=== PATIENT | female | born 1965 | race Caucasian/White ===

== ENCOUNTER 2020-03-21 09:33 | Inpatient (IN) | payer OTHER, SELFPAY ==
[2020-03-21] VITALS (17 sets, daily range): BP systolic 114–134; BP diastolic 53–90; PULSE 72–91; RESP 16–24; TEMP 37.2–38; O2SAT 86–98; BMI 45.3
--- NOTE | ~2020-03-21 | XR_ITS ---
EXAMINATION: XR chest 1V portable INDICATION: Cough, COVID 19 positive, fever TECHNIQUE: Portable AP chest at 1056 hours COMPARISON: None available FINDINGS: There are airspace opacities of the mid and lower lung zones. No pleural effusion or pneumo thorax is identified. The cardiomediastinal silhouette is normal. IMPRESSION: 1. Airspace opacities of the mid and lower lung zones in a distribution compatible with COVID 19 pneu monia. Reviewed, dictated and finalized at location A. IMPRESSION: 1. Airspace opacities of the mid and lower lung zones in a distribution compati ble with COVID 19 pneumonia.
--- NOTE | 2020-03-21 10:30 | PC.NURSE ---
Pt unable to give urine sample at this time. Need for urine specimen explained.
--- NOTE | 2020-03-21 10:36 | ED.GENADULT ---
HPI - General Adult General Chief complaint: Nausea/Vomiting/Diarrhea Stated complaint: covid positive/fever/cough/nausea Time Seen by Provider: 03/21/20 10:08 Source: patient Mode of arrival: ambulatory Limitations: no limitations History of Present Illness HPI narrative: Patient is a 54-year-old female who a few days ago tested positive for aaron virus her significant other is also positive coronavirus patient notes rhinorrhea congestion sinus headache also noting some loose stools denying rectal bleeding or melena has nausea but no emesis noting fatigue. Patient also notes some urinary frequency and urgency. Patient with history of ulcerative colitis Related Data Allergies Allergy/AdvReac Type Severity Reaction Status Date / Time sulfamethoxazole Allergy Mild Hives Unverified 03/21/20 10:53 trimethoprim Allergy Mild Unknown Unverified 03/21/20 10:53 Review of Systems Review of Systems: All systems reviewed & are unremarkable except as noted in HPI and below PMFSH Past Medical History Medical History Asthma Obesity Ulcerative colitis Surgical History Surgical History H/O colonoscopy Social History Social History Smoking status: Never smoker Exam Narrative: Exam Narrative: GENERAL: Ill-appearing, obese , and in no acute distress. HEAD: Normocephalic, atraumatic. EYES: PERRLA and EOMI. ENT: Nares clear, no rhinorrhea or epistaxis. Mucous membranes moist. Oropharynx without tonsillar hypertrophy exudate or other lesions. CHEST: Diminished on auscultation. No respiratory distress. No wheezes rales or rhonchi HEART: Regular rate and rhythm. No murmur heard. Normal peripheral pulses. ABDOMEN: Soft, nontender, nondistended EXTREMITIES: Normal range of motion. No edema. SKIN: Warm, dry, no rash. NEURO: No focal deficits. Alert and oriented x3. Cranial nerves II through XII grossly intact PSYCH: Normal mood and affect. Course Course Emergency Course: Patient in the room at this time resting comfortably has been dipping down and becoming hypoxic sitting in the room patient has urinary tract infection and pneumonia will be brought into hospital for further evaluation. Patient agrees with this plan and noted improvement with medication Consultations Consultation #1: Discussed case with hospitalist who has agreed to accept the patient Date: 03/21/20 Time: 12:29 Vital Signs Vital signs: Vital Signs Temperature 100 F H 03/21/20 09:43 Pulse Rate 88 03/21/20 09:43 Respiratory Rate 17 03/21/20 09:43 Blood Pressure 127/82 03/21/20 09:43 Pulse Oximetry 95 03/21/20 09:43 Temperature 100 F H 03/21/20 09:43 Pulse Rate 90 03/21/20 11:15 Respiratory Rate 30 H 03/21/20 11:15 Blood Pressure 134/90 03/21/20 11:15 Pulse Oximetry 91 03/21/20 11:15 Medical Decision Making MDM Narrative Medical decision making narrative: Patient in the room at this time with improvement of nausea with urinary tract infection COVID pneumonia patient's oxygenation is hanging around 94- 92 while lying in bed. Patient also with ulcerative colitis on immunosuppression. Patient will be kept in hospital. Patient agrees with this plan Vital Signs Vital Signs: Vital Signs Temperature 100 F H 03/21/20 09:43 Pulse Rate 88 03/21/20 09:43 Respiratory Rate 17 03/21/20 09:43 Blood Pressure 127/82 03/21/20 09:43 Pulse Oximetry 95 03/21/20 09:43 Temperature 100 F H 03/21/20 09:43 Pulse Rate 90 03/21/20 11:15 Respiratory Rate 30 H 03/21/20 11:15 Blood Pressure 134/90 03/21/20 11:15 Pulse Oximetry 91 03/21/20 11:15 Lab Data Result diagrams: 03/21/20 10:46 03/21/20 10:46 Labs: Lab Results 03/21/20 03/21/20 03/21/20 Range/Units 10:46 10:46 10:46 WBC 7.9 (4.5-10.0) K/mm3 RBC
[2020-03-21] MEDS: FAMOTIDINE 20 MG/2 ML VIAL IV PUSH ×2 (10:53→20:32)
[2020-03-21 10:54] LABS: Basophils Percent Auto 0.5 % (0.2-1.2); Eosinophils Percent Auto 0.1 % (0-4.4); Hematocrit 44.8 % (37.0-47.0); Hemoglobin 14.8 g/dL (12.0-15.0); Immature Granulocyte Percent A 1.3 % (0-0.5); Lymphocytes Absolute Auto 0.98 K/mm3 (0.9-3.2); Lymphocytes Percent Auto 12.4 % (18.3-44.2); Mean Corpuscular Hemoglobin 28.8 pg (26-34); Mean Corpuscular Volume 87.2 fl (80-100); Mean Platelet Volume 10.4 fl (7.4-10.4); Monocytes Absolute Auto 0.6 K/mm3 (0.1-0.6); Monocytes Percent Auto 7.9 % (2.6-8.5); Neutrophils Absolute Auto 6.2 K/mm3 (1.3-6.7); Neutrophils Percent Auto 77.8 % (45.5-73.1); Platelet Count Result 210 k/mm3 (150-375); Red Blood Count 5.14 M/mm3 (4.2-5.4); Red Cell Distribution Width 14.1 % (11.5-14.5); White Blood Count 7.9 K/mm3 (4.5-10.0)
[2020-03-21] MEDS: METOCLOPRAMIDE HCL INJ 10 MG/2 ML VIAL IV PUSH (10:54)
--- NOTE | 2020-03-21 11:00 | PC.NURSE ---
This RN requested urine specimen, pt states she was taken to restroom but not given specimen cup. Pt will press call light as soon as she is able to give urine specimen.
[2020-03-21 11:07] LABS: Alanine Aminotransferase 13 U/L (4-35); Albumin Level 3.9 g/dL (3.5-5.1); Alkaline Phosphatase 78 U/L (38-126); Anion Gap 8 mmol/L (8-16); Aspartate Amino Transferase 35 U/L (14-36); Bilirubin,Total 0.3 mg/dL (0.2-1.3); Blood Urea Nitrogen 14 mg/dL (7-17); CRP 7.2 mg/dL (<1.0); Calcium 8.2 mg/dL (8.4-10.2); Carbon Dioxide 23 mmol/L (22-30); Chloride 107 mmol/L (98-107); Estimated CRCL calculation 91 ml/min; Estimated Glomerular Filt Rate > 60; Glucose 103 mg/dL (65-105); Lipase 56 U/L (23-300); Potassium 3.7 mmol/L (3.4-5.0); Prothrombin Time 13.2 Seconds (11.1-14.7); Sodium 138 mmol/L (137-145)
[2020-03-21 11:08] LABS: Partial Thromboplastin Time 32.1 SECONDS (22.3-36.8)
[2020-03-21] MEDS: LACTATED RINGERS 1,000 ML 999 ML IV CONT (11:14)
--- NOTE | 2020-03-21 11:47 | PC.NURSE ---
Pt ambulating to the bathroom at this time
--- NOTE | 2020-03-21 11:54 | PC.NURSE ---
Patient reports decreased nausea after medications. Patient ambulatory to restroom and back to ER stretcher. Resting with call light in reach and ice chips provided.
[2020-03-21 12:01] LABS: Add Urine Microscopic? YES; Appearance Urine Clear (Clear); Bacteria Urine Trace /hpf; Bilirubin Urine Negative (Negative); Blood Urine Negative (Negative); Color Urine Yellow (Yellow); Glucose Urine UA 1+ mg/dL (Negative); Ketones Urine Trace mg/dL (Negative); Leukocyte Esterase Ur 3+ LEU/UL (Negative); Mucus Urine Rare /lpf; Nitrate Urine Negative (Negative); Protein Urine 1+ mg/dL (Negative); Specific Grav Ur 1.026 (1.001-1.035); Squamous Epithelial Cell Urine Moderate /hpf (Few); Urobilinogen Urine Negative mg/dL (<2.0); WBC Urine 31-50 /hpf
--- NOTE | 2020-03-21 13:49 | PC.NURSE ---
This patient, Mikaela Newton, was admitted to [facility] Surg Room 330-01. Patient/family oriented to hospital policies and general routines including ID bracelet, bed and alarms, visiting hours, pain management, procedures, bathroom and other care routines, personal items, smoking policy, room service/diet, and visiting hours. Valuables list has been completed. Information on how to activate the Rapid Response Team has been discussed. Patient/Family are encouraged to report perceived risks to care and to ask questions if they do not understand what they are told or what they should do.
[2020-03-21] MEDS: LACTATED RINGERS 1,000 ML 125 ML IV CONT ×2 (14:24→20:31)
[2020-03-21] MEDS: ONDANSETRON INJ 4 MG/2 ML VIAL IV PUSH (18:35)
--- NOTE | 2020-03-21 20:45 | PM.IMHP ---
H&P: HPI History of Present Illness Date/Time: 03/21/20 20:45 Chief complaint: Nausea and poor oral intake. Narrative: Mikaela Newton is a Very pleasant 54-year-old female with ulcerative colitis, GERD, depression, and anxiety who presented to the emergency department earlier this morning via private vehicle from home for evaluation of nausea and poor oral intake. Approximately 8 days ago (February) she began feeling poorly to include sinus congestion, body aches, nausea, diarrhea, and fever. Her had tested positive for COVID-19, and she was tested the following day also with a positive result. She is still able to smell and taste, but her appetite has not been great due to severe nausea and things are just not tasting the same. She has been alternating ibuprofen and Tylenol but continues to spike fevers with a T-max of 101.4?. In the emergency department she was given IV fluid rehydration and antiemetics, with perhaps slight improvement. She is being admitted due to reports of hypoxia in the emergency department, however her SpO2 has been in the high 90s on room air since arrival to the floor. Her main complaint at the time my evaluation is of body aches and a diffuse frontal headache. She denies neck ache, chest pain, pleuritic pain, severe shortness of breath, orthopnea, PND, lower extremity edema, and .vomiting Review of Systems Review of Systems: Narrative: 12 systems were reviewed with pertinent positives and negatives as per HPI. No neck ache. She denies sore throat and rash. She has had 4 to 5 loose stools per day. No recent travel or antibiotic use. No blood or mucus in the stool. She denies dysuria. Except as documented, all other systems were reviewed and are negative. [facility] Past Medical History Medical History (Updated 03/21/20 @ 21:48 by Dominique Gonzalez PA-C) Asthma Depression with anxiety Gastroesophageal reflux disease Overactive bladder Skin cancer History of squamous cell and basal cell carcinoma. Ulcerative colitis Surgical History Surgical History (Updated 03/21/20 @ 21:43 by Dominique Gonzalez PA-C) History of appendectomy History of bladder suspension procedure History of cholecystectomy History of colonoscopy History of hysterectomy Related to endometriosis. History of lumpectomy of left breast With benign pathology. History of sinus surgery Family History Family History Mother Breast cancer Father Parkinsons Lymphoma Father No problems noted. Social History Social History (Updated 03/21/20 @ 21:44 by Dominique Gonzalez PA-C) Social History: The patient lives in [place] with her . 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 She is a lifelong nonsmoker and denies alcohol and illicit substance use. She designates her , Michele, as her surrogate decision maker and she wishes to be a full code. Gender identity (if verbalized by the patient): Female Spiritual care concerns: No Meds Home Medications and Allergies Home Medications Medication Instructions Recorded Confirmed Type Lacto.acidophilus-Bif.animalis 1 cap PO DAILY 03/21/20 03/21/20 History [Daily Probiotic] bupropion HCl [Wellbutrin XL] 450 mg PO QAM 03/21/20 03/21/20 History cetirizine-pseudoephedrine 1 tablet PO DAILY 03/21/20 03/21/20 History [Zyrtec-D] lansoprazole [Prevacid] 15 mg PO DAILY 03/21/20 03/21/20 History mirabegron [Myrbetriq] 25 mg PO HS 03/21/20 03/21/20 History propranolol 10 mg PO Q12H 03/21/20 03/21/20 History spironolactone 50 mg PO BID 03/21/20 03/21/20 History Allergies Allergy/AdvReac Type Severity Reaction Status Date / Time sulfamethoxazole Allergy Mild Hives Verified 03/21/20 12:58 trimethoprim Allergy Mild Unknown Verified 03/21/20 12:58 Vital Signs Vital Signs - 24 hr 03/21/20 09:43 03/21/20 10:01 03/21/20 10:53 Temperature 100 F H Pulse Rate 88 86 91 Respiratory
[2020-03-21] MEDS: IBUPROFEN 600 MG TABLET PO (22:15)
[2020-03-21] MEDS: MIRABEGRON 25 MG ER TABLET PO (22:24)
[2020-03-21] MEDS: PROPRANOLOL HCL 10 MG TABLET PO (22:24)
[2020-03-21] MEDS: MELATONIN 5 MG TABLET PO (22:24)
[2020-03-22] VITALS (14 sets, daily range): BP systolic 108–136; BP diastolic 54–66; PULSE 66–74; RESP 18–20; TEMP 36.6–36.9; O2SAT 92–98
[2020-03-22] MEDS: REMDESIVIR 200 MG/NS 250 ML 200 MG/250 ML BAG 250 MG IVPB (00:39)
[2020-03-22 05:56] LABS: Hematocrit 41.7 % (37.0-47.0); Hemoglobin 13.6 g/dL (12.0-15.0); Mean Corpuscular HGB Conc 32.6 g/dl (32-36); Mean Corpuscular Hemoglobin 28.6 pg (26-34); Mean Corpuscular Volume 87.6 fl (80-100); Mean Platelet Volume 9.7 fl (7.4-10.4); Platelet Count Result 178 k/mm3 (150-375); Red Blood Count 4.76 M/mm3 (4.2-5.4); Red Cell Distribution Width 13.5 % (11.5-14.5); White Blood Count 7.5 K/mm3 (4.5-10.0)
[2020-03-22] MEDS: IBUPROFEN 600 MG TABLET PO ×3 (06:15→21:00)
[2020-03-22 06:16] LABS: Anion Gap 6 mmol/L (8-16); Blood Urea Nitrogen 9 mg/dL (7-17); CRP 7.8 mg/dL (<1.0); Calcium 8.1 mg/dL (8.4-10.2); Carbon Dioxide 29 mmol/L (22-30); Chloride 103 mmol/L (98-107); Estimated CRCL calculation 93 ml/min; Estimated Glomerular Filt Rate > 60; Glucose 97 mg/dL (65-105); Lactate Dehydrogenase 427 U/L (313-618); Magnesium 2.1 mg/dL (1.6-2.3); Potassium 3.3 mmol/L (3.4-5.0); Sodium 138 mmol/L (137-145)
[2020-03-22 06:18] LABS: Alanine Aminotransferase 11 U/L (4-35)
[2020-03-22] MEDS: PROPRANOLOL HCL 10 MG TABLET PO ×2 (08:26→20:59)
[2020-03-22] MEDS: buPROPion HCL XL (24 HR) 150 MG TABCR 450 MG PO (08:27)
[2020-03-22] MEDS: PANTOPRAZOLE 40 MG TABLET PO (08:27)
[2020-03-22] MEDS: ACIDOPHILUS/BULGARICUS CHEWABLE TABLET 1 TABLET PO (08:27)
[2020-03-22] MEDS: CHOLECALCIFEROL 400 UNITS TABLET (VIT D) PO (08:27)
[2020-03-22] MEDS: ZINC SULFATE 220 MG CAPSULE PO (08:27)
[2020-03-22] MEDS: ENOXAPARIN 40 MG/0.4 ML SYRINGE SUB-Q (08:27)
[2020-03-22] MEDS: ASCORBIC ACID 500 MG TABLET PO (08:27)
[2020-03-22] MEDS: DEXAMETHASONE 2 MG TABLET 6 MG PO (08:27)
[2020-03-22] MEDS: POTASSIUM CHLORIDE 20 MEQ TABLET 40 MEQ PO (09:36)
[2020-03-22] MEDS: LOPERAMIDE HCL 2 MG CAPSULE PO (09:36)
[2020-03-22] MEDS: ONDANSETRON INJ 4 MG/2 ML VIAL IV PUSH (09:36)
--- NOTE | 2020-03-22 14:39 | PM.IMPN ---
Progress Note: A&P Assessment and Plan (1) Pneumonia due to COVID-19 virus: Code(s): U07.1 - COVID-19; J12.89 - Other viral pneumonia Status: Acute Assessment and Plan: -----wean down to 1 L but still feeling short of breath at times. Will switch albuterol from p.r.n. to scheduled. She is not taking big breath so I instructed her to do so. We will continue with Remdesivir and at the max his own at this time. Will repeat inflammatory labs tomorrow morning. (2) Depression with anxiety: Code(s): F41.8 - Other specified anxiety disorders Status: Acute Assessment and Plan: -----in good spirits today.Continue bupropion and propranolol. (3) Abnormal urinalysis: Code(s): R82.90 - Unspecified abnormal findings in urine Status: Acute Assessment and Plan: -----Her specimen looks contaminated since that has moderate squamous cells and no current symptoms. No plan to treat (4) Gastroesophageal reflux disease: Code(s): K21.9 - Gastro-esophageal reflux disease without esophagitis Status: Acute Assessment and Plan: -----Continue PPI. (5) Ulcerative colitis: Code(s): K51.90 - Ulcerative colitis, unspecified, without complications Status: Acute Assessment and Plan: ------she had a little diarrhea today which improved with Imodium. Hold Lialda during acute illness. Time Spent With Patient Time with patient: 25 - 35 minutes Subjective Date/time seen: 03/22/20 14:39 Interval history: Pt is a 54-year-old female here for COVID pneumonia. Patient states that she is feeling short of breath when she talks a lot but at rest she does okay. She walked to the bathroom without shortness of breath with her oxygen today. She has had a lot of diarrhea today which is not normal for her. She still has a decreased appetite but she is eating but she can. She has O2 risk who at this time Review of Systems Review of Systems: All systems reviewed & are unremarkable except as noted in HPI and below Exam Narrative: Exam Narrative: General: Well developed well nourished patient in NAD HEENT: normocephalic Neck: supple Neuro: Alert and oriented x4 CV:RRR Resp:CTA on 1 L of oxygen Abd: Soft, non distended. No pain to palpation. Positive bowel sounds Extremities: No swelling, erythema, or pain to palpation. Objective Data Vital Signs Vital Signs: Vital Signs - 24 hr 03/21/20 16:00 03/21/20 19:30 03/21/20 20:00 Temperature 99.5 F 99.0 F Pulse Rate 81 79 Respiratory Rate 16 20 Blood Pressure 125/58 L 116/56 L Pulse Oximetry 98 96 96 03/21/20 22:24 03/21/20 22:40 03/21/20 23:00 Temperature Pulse Rate 78 72 Respiratory Rate Blood Pressure Pulse Oximetry 87 L 93 03/21/20 23:28 03/21/20 23:35 03/22/20 00:00 Temperature 98.4 F Pulse Rate 76 72 Respiratory Rate 20 18 Blood Pressure 108/55 L Pulse Oximetry 86 L 96 94 03/22/20 01:50 03/22/20 04:00 03/22/20 06:16 Temperature 97.9 F 98.5 F Pulse Rate 74 66 Respiratory Rate 18 Blood Pressure 116/66 Pulse Oximetry 97 97 98 03/22/20 08:00 03/22/20 08:26 03/22/20 10:25 Temperature Pulse Rate 66 Respiratory Rate Blood Pressure Pulse Oximetry 97 97 03/22/20 11:10 03/22/20 14:00 Temperature 98.5 F Pulse Rate 66 Respiratory Rate 20 Blood Pressure 129/54 L Pulse Oximetry 94 94 Intake/Output Intake/Output: Intake & Output 03/19/20 03/20/20 03/21/20 03/22/20 23:59 23:59 23:59 23:59 Intake Total 2200 790 Output Total 1400 Balance 2200 -610 Meds/Results Medications: Active Medications Generic Name Dose Route Start Last Admin Trade Name Freq PRN Reason Stop Dose Admin Acetaminophen 650 mg 03/21/20 21:33 Tylenol Tablet PO Q6H PRN Mild Pain (1-3) or Fever Albuterol 2 puff 03/21/20 21:54 Proventil Hfa INHALATION QIDRT PRN Shortness Of Breath Ascorbic
[2020-03-22] MEDS: MIRABEGRON 25 MG ER TABLET PO (20:59)
[2020-03-22] MEDS: MELATONIN 5 MG TABLET PO (20:59)
[2020-03-22] MEDS: REMDESIVIR 100 MG/NS 250 ML 100 MG/250 ML BAG 250 MG IVPB (21:01)
[2020-03-22] MEDS: ALBUTEROL SULFATE (*SP) AEROSOL 1 PUFF 6 PUFF INHALATION (22:55)
[2020-03-23] VITALS (16 sets, daily range): BP systolic 103–127; BP diastolic 60–71; PULSE 53–80; RESP 18–24; TEMP 36.1–36.7; O2SAT 91–94
[2020-03-23 06:26] LABS: Hematocrit 41.8 % (37.0-47.0); Hemoglobin 13.9 g/dL (12.0-15.0); Mean Corpuscular HGB Conc 33.3 g/dl (32-36); Mean Corpuscular Hemoglobin 28.5 pg (26-34); Mean Corpuscular Volume 85.8 fl (80-100); Mean Platelet Volume 9.7 fl (7.4-10.4); Platelet Count Result 212 k/mm3 (150-375); Red Blood Count 4.87 M/mm3 (4.2-5.4); Red Cell Distribution Width 13.3 % (11.5-14.5); White Blood Count 7.6 K/mm3 (4.5-10.0)
[2020-03-23 06:41] LABS: D Dimer 0.41 ug/mL (<0.48)
[2020-03-23 07:09] LABS: Potassium 4.1 mmol/L (3.4-5.0)
[2020-03-23 07:17] LABS: Alanine Aminotransferase 12 U/L (4-35); Albumin Level 3.6 g/dL (3.5-5.1); Alkaline Phosphatase 63 U/L (38-126); Anion Gap 8 mmol/L (8-16); Aspartate Amino Transferase 31 U/L (14-36); Bilirubin,Total 0.4 mg/dL (0.2-1.3); Blood Urea Nitrogen 14 mg/dL (7-17); CRP 7.1 mg/dL (<1.0); Calcium 8.6 mg/dL (8.4-10.2); Carbon Dioxide 23 mmol/L (22-30); Chloride 107 mmol/L (98-107); Estimated CRCL calculation 106 ml/min; Estimated Glomerular Filt Rate > 60; Glucose 134 mg/dL (65-105); Lactate Dehydrogenase 451 U/L (313-618); Magnesium 2.2 mg/dL (1.6-2.3); Sodium 138 mmol/L (137-145)
[2020-03-23] MEDS: buPROPion HCL XL (24 HR) 150 MG TABCR 450 MG PO (08:22)
[2020-03-23] MEDS: ACIDOPHILUS/BULGARICUS CHEWABLE TABLET 1 TABLET PO (08:22)
[2020-03-23] MEDS: DEXAMETHASONE 2 MG TABLET 6 MG PO (08:22)
[2020-03-23] MEDS: ASCORBIC ACID 500 MG TABLET PO (08:22)
[2020-03-23] MEDS: CHOLECALCIFEROL 400 UNITS TABLET (VIT D) PO (08:22)
[2020-03-23] MEDS: ENOXAPARIN 40 MG/0.4 ML SYRINGE SUB-Q (08:22)
[2020-03-23] MEDS: PANTOPRAZOLE 40 MG TABLET PO (08:23)
[2020-03-23] MEDS: PROPRANOLOL HCL 10 MG TABLET PO ×2 (08:23→21:40)
[2020-03-23] MEDS: ZINC SULFATE 220 MG CAPSULE PO (08:23)
[2020-03-23] MEDS: ALBUTEROL SULFATE (*SP) AEROSOL 1 PUFF 6 PUFF INHALATION (09:21)
--- NOTE | 2020-03-23 09:27 | PC.NURSE ---
Spoke with CORTES Cesar. Pt had complained about reciving HHN tx at 11pm on 03/22/20. Said she was jittery all night and couldnt sleep. Tali gave new orders to change HHN tx to PRN Q6 H. Also asked Tali if it was ok for pt to get up and take shower. She said it was ok as long as pt was not SOB may need shower chair
--- NOTE | 2020-03-23 11:52 | PC.NURSE ---
Pt was able to shower independently using a shower chair. She remained on 1L O2.Pt tolerated well. She said she did tier easily.
--- NOTE | 2020-03-23 12:37 | PHAR ---
HOME MEDICATION VERIFIED BY PHARMACY: ALBERT PATCH 0.075 MG (ESTRADIOL TRANSDERMAL) APPLY 1 PATCH TOPICALLY TWICE WEEKLY
--- NOTE | 2020-03-23 13:07 | PM.IMPN ---
Progress Note: A&P Assessment and Plan (1) Pneumonia due to COVID-19 virus: Code(s): U07.1 - COVID-19; J12.89 - Other viral pneumonia Status: Acute Assessment and Plan: -----wean down to 1 L but still feeling short of breath at times. she does not do well with albuterol so we will discontinue this. She is trying to take deep breaths to help open up her airway. We will continue with Remdesivir and Decadron at this time. (2) Depression with anxiety: Code(s): F41.8 - Other specified anxiety disorders Status: Acute Assessment and Plan: -----in good spirits today.Continue bupropion and propranolol. (3) Abnormal urinalysis: Code(s): R82.90 - Unspecified abnormal findings in urine Status: Acute Assessment and Plan: -----Her specimen looks contaminated since that has moderate squamous cells and no current symptoms. It is only growing [id number] Proteus. No plan to treat (4) Gastroesophageal reflux disease: Code(s): K21.9 - Gastro-esophageal reflux disease without esophagitis Status: Acute Assessment and Plan: -----Continue PPI. (5) Ulcerative colitis: Code(s): K51.90 - Ulcerative colitis, unspecified, without complications Status: Acute Assessment and Plan: ------she had a little diarrhea today which improved with Imodium. Hold Lialda during acute illness. Subjective Date/time seen: 03/23/20 13:07 Interval history: Pt is a 54-year-old female here for COVID pneumonia. Patient was seen today and is feeling little nauseous right now but other than that feeling okay. She was up and able to take a shower and did not feel short of breath. She wear her oxygen the whole time. She is eating and drinking much better. Her diarrhea has resolved. She still has no dysuria or hematuria. Exam Narrative: Exam Narrative: General: Well developed well nourished patient in NAD HEENT: normocephalic Neck: supple Neuro: Alert and oriented x4 CV:RRR Resp:CTA on 1 L of oxygen Abd: Soft, non distended. No pain to palpation. Positive bowel sounds Extremities: No swelling, erythema, or pain to palpation. Objective Data Vital Signs Vital Signs: Vital Signs - 24 hr 03/22/20 14:00 03/22/20 16:00 03/22/20 20:11 Temperature 98.5 F 98.1 F Pulse Rate 66 68 70 Respiratory Rate 20 20 18 Blood Pressure 129/54 L 113/60 Pulse Oximetry 94 95 92 03/22/20 20:53 03/22/20 20:59 03/22/20 22:53 Temperature 97.8 F Pulse Rate 66 66 67 Respiratory Rate 20 20 Blood Pressure 136/65 Pulse Oximetry 94 93 03/23/20 00:00 03/23/20 00:39 03/23/20 04:00 Temperature 98.0 F Pulse Rate 60 61 53 L Respiratory Rate 22 H 18 18 Blood Pressure 122/71 Pulse Oximetry 92 93 91 03/23/20 05:00 03/23/20 08:00 03/23/20 08:23 Temperature 98.0 F 96.9 F L Pulse Rate 57 L 56 L 80 Respiratory Rate 20 24 H Blood Pressure 110/60 103/60 Pulse Oximetry 94 94 03/23/20 09:12 03/23/20 09:27 03/23/20 12:19 Temperature 96.9 F L Pulse Rate 56 L 78 Respiratory Rate 24 H 20 Blood Pressure 103/60 Pulse Oximetry 94 92 91 Intake/Output Intake/Output: Intake & Output 03/20/20 03/21/20 03/22/20 03/23/20 23:59 23:59 23:59 23:59 Intake Total 2200 1990 690 Output Total 2100 650 Balance 2200 -110 40 Meds/Results Medications: Active Medications Generic Name Dose Route Start Last Admin Trade Name Freq PRN Reason Stop Dose Admin Acetaminophen 650 mg 03/21/20 21:33 Tylenol Tablet PO Q6H PRN Mild Pain (1-3) or Fever Albuterol 2 puff 03/21/20 21:54 Proventil Hfa INHALATION QIDRT PRN Shortness Of Breath Albuterol 6 puff 03/23/20 09:33 Proventil Hfa INHALATION Q6HRT PRN Dyspnea Ascorbic Acid 500 mg 03/22/20 09:00 03/23/20 08:22 Vitamin C PO 500 mg DAILY LULU Administration Bupropion HCl 450 mg 03/22/20 09:00 03/23/20 08:22 Wellbutrin Xl (24
[2020-03-23] MEDS: ONDANSETRON INJ 4 MG/2 ML VIAL IV PUSH (13:08)
--- NOTE | 2020-03-23 14:50 | PC.NURSE ---
Tali KOLB is aware urine culture result is back. Protrus Miriabilis
--- NOTE | 2020-03-23 15:24 | PC.NURSE ---
PT stated she was having some nausea. I gave 4mg of prn Zofran IVP. Reevaluation was done 30min after administration. Pt stated nausea was gone.
--- NOTE | 2020-03-23 16:56 | PCRCNOTE ---
HOME O2 EVALUATION DONE. PT DOES NOT QUALIFY FOR HOME O2
--- NOTE | 2020-03-23 18:11 | PC.NURSE ---
recived orders from Tali KOLB, to wean o2 while mainting o2 at 92%. Also , pt is coughing, order for chloé HUFF.
[2020-03-23] MEDS: MELATONIN 5 MG TABLET PO (21:40)
[2020-03-23] MEDS: MIRABEGRON 25 MG ER TABLET PO (21:40)
[2020-03-23] MEDS: REMDESIVIR 100 MG/NS 250 ML 100 MG/250 ML BAG 250 MG IVPB (21:40)
[2020-03-23] MEDS: BENZONATATE 100 MG CAPSULE PO (21:41)
[2020-03-23] MEDS: IBUPROFEN 600 MG TABLET PO (22:02)
[2020-03-24] VITALS (10 sets, daily range): BP systolic 100–123; BP diastolic 48–75; PULSE 54–70; RESP 18–20; TEMP 36.2–36.9; O2SAT 88–94
[2020-03-24 07:08] LABS: Alanine Aminotransferase 11 U/L (4-35); Anion Gap 7 mmol/L (8-16); Blood Urea Nitrogen 17 mg/dL (7-17); CRP 3.1 mg/dL (<1.0); Calcium 8.5 mg/dL (8.4-10.2); Carbon Dioxide 26 mmol/L (22-30); Chloride 106 mmol/L (98-107); Estimated CRCL calculation 93 ml/min; Estimated Glomerular Filt Rate > 60; Glucose 123 mg/dL (65-105); Potassium 3.9 mmol/L (3.4-5.0); Sodium 139 mmol/L (137-145)
--- NOTE | 2020-03-24 08:28 | PC.NURSE ---
Tali KOLB, requested nasal cannula be removed to see how pt does on room air. She was taken of the 0.5L nasal cannula. She will stay on continuous monitoring for pulse oximetry at this time.
[2020-03-24] MEDS: ENOXAPARIN 40 MG/0.4 ML SYRINGE SUB-Q (09:54)
[2020-03-24] MEDS: ZINC SULFATE 220 MG CAPSULE PO (09:54)
[2020-03-24] MEDS: buPROPion HCL XL (24 HR) 150 MG TABCR 450 MG PO (09:54)
[2020-03-24] MEDS: CHOLECALCIFEROL 400 UNITS TABLET (VIT D) PO (09:55)
[2020-03-24] MEDS: ACIDOPHILUS/BULGARICUS CHEWABLE TABLET 1 TABLET PO (09:55)
[2020-03-24] MEDS: BENZONATATE 100 MG CAPSULE PO ×3 (09:55→17:44)
[2020-03-24] MEDS: ASCORBIC ACID 500 MG TABLET PO (09:55)
[2020-03-24] MEDS: PROPRANOLOL HCL 10 MG TABLET PO (09:55)
[2020-03-24] MEDS: PANTOPRAZOLE 40 MG TABLET PO (09:55)
[2020-03-24] MEDS: DEXAMETHASONE 2 MG TABLET 6 MG PO (09:55)
--- NOTE | 2020-03-24 11:11 | PM.IMPN ---
Progress Note: A&P Assessment and Plan (1) Pneumonia due to COVID-19 virus: Code(s): U07.1 - COVID-19; J12.89 - Other viral pneumonia Status: Acute Assessment and Plan: -----patient intermittently requires oxygen and is usually around 88-92. She reportedly passed her home oxygen evaluation which is surprising. I do not think she is ready to go home at this time and would benefit from continuation of Remdesivir and dexamethasone. She agrees to the plan and is continuing to try to take deep breaths to keep her airway open (2) Depression with anxiety: Code(s): F41.8 - Other specified anxiety disorders Status: Acute Assessment and Plan: -----in good spirits today.Continue bupropion and propranolol. (3) Abnormal urinalysis: Code(s): R82.90 - Unspecified abnormal findings in urine Status: Acute Assessment and Plan: -----Her specimen looks contaminated since that has moderate squamous cells and no current symptoms. It is only growing [id number] Proteus. No plan to treat (4) Gastroesophageal reflux disease: Code(s): K21.9 - Gastro-esophageal reflux disease without esophagitis Status: Acute Assessment and Plan: -----Continue PPI. (5) Ulcerative colitis: Code(s): K51.90 - Ulcerative colitis, unspecified, without complications Status: Acute Assessment and Plan: ------she had a little diarrhea today which improved with Imodium. Hold Lialda during acute illness. Subjective Date/time seen: 03/24/20 11:11 Interval history: Pt is a 54-year-old female here for COVID pneumonia. Patient was seen today and is doing well. She has no shortness of breath at rest and can do mild activities without shortness of breath. When she took a shower, she did struggle little bit with shortness of breath but recovered when she sat down. She is eating and drinking well although she does not like the heart healthy diet. She is not have any dysuria or hematuria. She is nervous about going home because she does not want have to come back if she gets worse. She is still requiring oxygen. Exam Narrative: Exam Narrative: General: Well developed well nourished patient in NAD HEENT: normocephalic Neck: supple Neuro: Alert and oriented x4 CV:RRR Resp:CTA on room air Abd: Soft, non distended. No pain to palpation. Positive bowel sounds Extremities: No swelling, erythema, or pain to palpation. Objective Data Vital Signs Vital Signs: Vital Signs - 24 hr 03/23/20 12:19 03/23/20 12:30 03/23/20 16:00 Temperature 97.5 F L 97.5 F L Pulse Rate 59 L 58 L Respiratory Rate 22 H 20 Blood Pressure 120/65 119/67 Pulse Oximetry 91 93 93 03/23/20 16:40 03/23/20 16:43 03/23/20 16:45 Temperature Pulse Rate 64 61 70 Respiratory Rate Blood Pressure Pulse Oximetry 92 91 91 03/23/20 20:00 03/23/20 21:40 03/24/20 00:00 Temperature 97.7 F 97.4 F L Pulse Rate 76 62 56 L Respiratory Rate 20 18 Blood Pressure 127/68 103/48 L Pulse Oximetry 92 91 03/24/20 04:00 03/24/20 08:00 03/24/20 09:55 Temperature 97.1 F L 98.2 F Pulse Rate 60 56 L 58 L Respiratory Rate 20 20 Blood Pressure 100/48 L 113/75 Pulse Oximetry 92 92 Intake/Output Intake/Output: Intake & Output 03/21/20 03/22/20 03/23/20 03/24/20 23:59 23:59 23:59 23:59 Intake Total 2200 1990 1590 200 Output Total 2100 1350 400 Balance 2200 -110 240 -200 Meds/Results Medications: Active Medications Generic Name Dose Route Start Last Admin Trade Name Mayitoq PRN Reason Stop Dose Admin Acetaminophen 650 mg 03/21/20 21:33 Tylenol Tablet PO Q6H PRN Mild Pain (1-3) or Fever Albuterol 6 puff 03/23/20 09:33 Proventil Hfa INHALATION Q6HRT PRN Dyspnea Ascorbic Acid 500 mg 03/22/20 09:00 03/24/20 09:55 Vitamin C PO 500 mg DAILY LULU Administration Benzonatate 100 mg 03/23/20 18:30 03/24/20 09:5
[2020-03-24] MEDS: MIRABEGRON 25 MG ER TABLET PO (20:39)
[2020-03-24] MEDS: MELATONIN 5 MG TABLET PO (20:39)
[2020-03-24] MEDS: REMDESIVIR 100 MG/NS 250 ML 100 MG/250 ML BAG 250 MG IVPB (21:04)
[2020-03-25] VITALS (8 sets, daily range): BP systolic 118–133; BP diastolic 65–70; PULSE 56–70; RESP 18–20; TEMP 36.5–36.7; O2SAT 92–96
[2020-03-25 06:48] LABS: Alanine Aminotransferase 17 U/L (4-35)
[2020-03-25] MEDS: DEXAMETHASONE 2 MG TABLET 6 MG PO (08:49)
[2020-03-25] MEDS: ZINC SULFATE 220 MG CAPSULE PO (08:50)
[2020-03-25] MEDS: ACIDOPHILUS/BULGARICUS CHEWABLE TABLET 1 TABLET PO (08:50)
[2020-03-25] MEDS: CHOLECALCIFEROL 400 UNITS TABLET (VIT D) PO (08:50)
[2020-03-25] MEDS: ASCORBIC ACID 500 MG TABLET PO (08:50)
[2020-03-25] MEDS: buPROPion HCL XL (24 HR) 150 MG TABCR 450 MG PO (08:50)
[2020-03-25] MEDS: ENOXAPARIN 40 MG/0.4 ML SYRINGE SUB-Q (08:51)
[2020-03-25] MEDS: PANTOPRAZOLE 40 MG TABLET PO (08:51)
[2020-03-25] MEDS: PROPRANOLOL HCL 10 MG TABLET PO (08:51)
--- NOTE | 2020-03-25 11:30 | PM.DS ---
DS: Admitting Diagnosis Admitting Diagnosis Admitting Diagnosis: COVID, Pneumonia, Hypoxemia, UTI DS: Discharge Diagnosis Discharge Diagnosis (1) Pneumonia due to COVID-19 virus: Code(s): U07.1 - COVID-19; J12.89 - Other viral pneumonia Status: Acute Assessment and Plan: -----the patient received Remdesivir and dexamethasone and improved greatly. The day of discharge, she was still needing 1 L of oxygen with activity only. Her appetite had increased and she felt better than she had in a while. She was able to get up and take a shower without issue. She is to continue dexamethasone at home and come back to emergency room if she starts to feel any worse. Patient agrees and is going to follow-up with her primary care physician in 1-2 weeks about this stay (2) Depression with anxiety: Code(s): F41.8 - Other specified anxiety disorders Status: Acute Assessment and Plan: -----in good spirits today.Continue bupropion and propranolol. (3) Abnormal urinalysis: Code(s): R82.90 - Unspecified abnormal findings in urine Status: Acute Assessment and Plan: -----Her specimen looks contaminated since that has moderate squamous cells and no current symptoms. It is only growing [id number] Proteus. No plan to treat (4) Gastroesophageal reflux disease: Code(s): K21.9 - Gastro-esophageal reflux disease without esophagitis Status: Acute Assessment and Plan: -----Continue PPI. (5) Ulcerative colitis: Code(s): K51.90 - Ulcerative colitis, unspecified, without complications Status: Acute Assessment and Plan: ------she had a little diarrhea today which improved with Imodium. Hold Lialda during acute illness. DS: Summary Hospital Course Reason for hospitalization: COVID-19 Hospital Course: Patient is a 54-year-old female who presented emergency room for worsening COVID-19 symptoms and shortness of breath. Temperature 100?, pulse 88, respiratory rate 17, blood pressure 137/82, pulse ox 95 on room air. CBC and BMP within normal limits. Chest x-ray showed airspace opacities in the mid and lower lungs consistent with COVID. Patient was admitted to the hospitalist service and started on supplemental oxygen as well as Remdesivir and dexamethasone. She gradually improved with this treatment and her appetite increased. The day of discharge she felt closer to baseline and wanted to go home. She still required 1 L of oxygen with activity only but felt comfortable going home with that. She was educated about the worrisome signs and symptoms come back to emergency room for and was discharged in stable condition. Please see above for further details. Status at Discharge Functional status at discharge: independent ambulation Overall status at discharge: patient is progressing back to baseline Time Spent with Patient Time attestation: Total time spent providing and/or coordinating discharge services:34 min Time spent: Greater than 30 minutes Exam Narrative: Exam Narrative: General: Well developed well nourished patient in NAD HEENT: normocephalic Neck: supple Neuro: Alert and oriented x4 CV:RRR Resp:CTA on room air Abd: Soft, non distended. No pain to palpation. Positive bowel sounds Extremities: No swelling, erythema, or pain to palpation. DS: Data Data Completed and Pending Labs on day of discharge: Labs from last 24 hours 03/25/20 06:13 ALT 17 Preliminary micro results at discharge 03/21/20 11:21 Blood Culture - Preliminary Blood 03/21/20 11:21 Blood Culture - Preliminary Blood Discharge Plan Discharge Attending physician on discharge: Lukas Claros Consulting providers: Ga Shannon ; Jack Bran ; Dominique Gonzalez Discharging Clinician: Tali Jamison Patient Disposition: Home, Self-Care Activity: as tolerated Diet: regular Discharge Instructions: - as
== END 2020-03-25 14:00 | disposition home or self-care (01) | DRG 177 ==
LOC: ANHED 12:30 → ANH3MEDSUR 12:43
PROVIDERS: Emergency Medicine Emergency Medical Services; Physician Assistant; Admitting Provider Family Medicine; Emergency Provider Emergency Medicine; Visit Provider Physician Assistant
DX: U07.1 COVID-19 (principal); J12.89 Other viral pneumonia; K51.90 Ulcerative colitis, unspecified, without complications; Z68.42 Body mass index [BMI] 45.0-49.9, adult; R09.02 Hypoxemia; F41.8 Other specified anxiety disorders; K21.9 Gastro-esophageal reflux disease without esophagitis; J45.909 Unspecified asthma, uncomplicated; E66.9 Obesity, unspecified; Z85.828 Personal history of other malignant neoplasm of skin; Z90.49 Acquired absence of other specified parts of digestive tract; Z90.710 Acquired absence of both cervix and uterus
CPT/HCPCS: 36415; 71045; 80048; 80053; 80076; 81001; 82728; 83605; 83615; 83690; 83735; 84460; 85025; 85027; 85380; 85610; 85730; 86140; 87040; 87077; 87086; 87088; 87186; 94618; 94640; 96361; 96365; 96366; 96367; 96375; 96376; 99285; A9270; G0378; J0131; J0696; J1650; J2405; J2765; J7120; J8540